=== PATIENT | female | born 1990 | race Caucasian/White ===

== ENCOUNTER 2019-10-26 13:28 | Emergency (ER) | payer SELFPAY ==
[~2019-10-26] VITALS: Ht 152.4 cm; Wt 70.8 kg
[2019-10-26 13:42] VITALS: BP 134/84
--- NOTE | 2019-10-26 14:14 | NUR ---
Patient eloped from facility.
== END 2019-10-26 14:15 | disposition left against medical advice (07) ==
LOC: ER 13:31
DX: Z53.21 Procedure and treatment not carried out due to patient leaving prior to being seen by health care provider (principal); R10.11 Right upper quadrant pain